=== PATIENT | female | born 1945 | race Caucasian/White ===

== ENCOUNTER 2020-11-08 11:29 | Emergency (ER) | payer OTHER ==
[2020-11-08 11:39] VITALS: BMI 27.4
[2020-11-08 12:48] LABS: BASO % 0.9 % (0-2.0); EOS % 1.7 % (0-4.5); HEMATOCRIT 40.6 % (32.4-45.2); HEMOGLOBIN 13.8 GM/dL (10.7-15.3); LYMPH % 22.1 % (8-40); MCH 32.4 pg (25.7-33.7); MCHC 34.1 g/dl (32.0-36.0); MEAN PLT VOLUME 8.7 fl (7.5-11.1); MONO % 7.3 % (3.8-10.2); PLATELET COUNT 292 K/MM3 (134-434); RBC 4.27 M/mm3 (3.60-5.2); RDW 12.9 % (11.6-15.6); WHITE BLOOD COUNT 7.6 K/mm3 (4.0-10.0)
[2020-11-08 13:03] LABS: CHLORIDE 105 mmol/L (98-107); POTASSIUM 3.8 mmol/L (3.5-5.1); SODIUM 139 mmol/L (136-145)
[2020-11-08 13:05] LABS: ALBUMIN 4.2 g/dl (3.4-5.0); ANION GAP 6 MMOL/L (8-16); BLOOD UREA NITROGEN 33.6 mg/dL (7-18); CALCIUM 9.6 mg/dL (8.5-10.1); CO2 29 mmol/L (21-32); MAGNESIUM 2.1 mg/dL (1.8-2.4)
[2020-11-08 13:06] LABS: GLUCOSE,RANDOM 87 mg/dL (74-106)
[2020-11-08 13:08] LABS: SGOT/AST 22 U/L (15-37); SGPT/ALT 34 U/L (13-61)
[2020-11-08 13:09] LABS: CREATININE 0.9 mg/dL (0.55-1.3)
[2020-11-08 13:10] LABS: BILIRUBIN,TOTAL 0.4 mg/dL (0.2-1); TOT PROT 6.8 g/dl (6.4-8.2)
[2020-11-08 13:11] LABS: ALK PHOS 101 U/L (45-117)
[2020-11-08] MEDS ORDERED: dilTIAZem HCL 60 MG TABLET PO ONE (14:27)
[2020-11-08 14:29] LABS: CHOLESTEROL 250 mg/dL (50-200); TRIGLYCERIDES 203 mg/dL (0-150)
[2020-11-08 14:30] LABS: LDL CHOLESTEROL (ONLY SJRH) 141 mg/dL (5-100)
[2020-11-08 14:31] LABS: HDL CHOLESTEROL 69 mg/dL (40-60)
[2020-11-08] MEDS ORDERED: dilTIAZem HCL 60 MG TABLET ONE (14:47)
[2020-11-08 15:04] VITALS: BP 138/66; PULSE 80; TEMP 97.9
== END 2020-11-08 15:10 | disposition home or self-care (01) ==
LOC: JER 11:29
DX: R00.0 Tachycardia, unspecified (principal)
CPT/HCPCS: 36415; 80053; 80061; 82550; 83721; 83735; 84443; 84484; 85025; 93005; 93010; 99284-25

== ENCOUNTER 2024-02-11 11:06 | Inpatient (IN) | payer OTHER, MEDICARE ==
[2024-02-11 11:26] VITALS: BMI 24.7
[2024-02-11 13:15] LABS: BASO % 0.3 % (0-2.0); EOS % 0.2 % (0-4.5); HEMATOCRIT 34.2 % (32.4-45.2); HEMOGLOBIN 11.8 GM/dL (10.7-15.3); LYMPH % 6.5 % (8-40); MCH 30.7 pg (25.7-33.7); MCHC 34.5 g/dl (32.0-36.0); MEAN CELL VOLUME 89.1 fl (80-96); PLATELET COUNT 301 10^3/uL (134-434); RBC 3.83 M/mm3 (3.60-5.2); RDW 14.2 % (11.6-15.6); WHITE BLOOD COUNT 17.7 K/mm3 (4.0-10.0)
[2024-02-11 13:21] LABS: INR 1.14 (0.83-1.09); PROTHROMBIN TIME (PATIENT) 13.1 SEC (9.7-13.0)
[2024-02-11 13:24] LABS: ACTIVATED PTT 54.1 SECONDS (25.2-36.5)
[2024-02-11 13:34] LABS: POTASSIUM 3.3 mmol/L (3.5-5.1)
[2024-02-11 13:36] LABS: CALCIUM 9.4 mg/dL (8.5-10.1)
[2024-02-11 13:37] LABS: ALBUMIN 3.9 g/dl (3.4-5.0); BLOOD UREA NITROGEN 19.3 mg/dL (7-18); MAGNESIUM 1.6 mg/dL (1.8-2.4)
[2024-02-11 13:40] LABS: CREATININE 1.4 mg/dL (0.55-1.3)
[2024-02-11 13:41] LABS: BILIRUBIN,TOTAL 1.1 mg/dL (0.2-1)
[2024-02-11 13:42] LABS: TOT PROT 6.9 g/dl (6.4-8.2)
[2024-02-11] MEDS: SODIUM CHLORIDE 1,000 ML IV ONE (16:01)
[2024-02-11] MEDS ORDERED: CEFTRIAXONE 1 GM/50 ML BAG ONE (17:50)
[2024-02-11] MEDS: CEFTRIAXONE 1,000 MG in DEXTROSE 5%-WATER - 50 ML IVPB ONE (18:04)
[2024-02-11] MEDS ORDERED: AZITHROMYCIN IVPB 500 MG/250 ML BAG IVPB ONE (18:22)
[2024-02-11 18:27] LABS: EPI CELLS >36 /uL (0-25.1); HYALINE CASTS 1 /uL (0-3.1); PH,URINE 5.5 (5.0-8.0); URINE APPEARANCE CLOUDY; URINE BACTERIA 84 /uL (0-1359); URINE BILIRUBIN NEGATIVE (NEGATIVE); URINE COLOR YELLOW; URINE GLUCOSE (UA) NEGATIVE (NEGATIVE); URINE KETONE NEGATIVE (NEGATIVE); URINE LEUK ESTERASE 3+ (NEGATIVE); URINE NITRITE NEGATIVE (NEGATIVE); URINE PROTEIN NEGATIVE (NEGATIVE); URINE RBC 17 /uL (0-23.9); URINE UROBILINOGEN 0.2 mg/dL (0.2-1.0); URINE WBC 439 /uL (0-25.8)
[2024-02-11] MEDS: AZITHROMYCIN IVPB 500 MG in DEXTROSE 5%-WATER - 250 ML IVPB ONE (18:29)
[2024-02-11] MEDS ORDERED: ACETAMINOPHEN INJECTION 100 ML IVPB ONE (20:26)
[2024-02-11] MEDS: ACETAMINOPHEN 1000 MG/100 ML BAG IVPB ONE (20:30)
[2024-02-12] MEDS ORDERED: POTASSIUM CHLORIDE TABS 20 MEQ TABLET.ER (FP) PO ONE ×2 (00:48→00:52)
[2024-02-12] MEDS: POTASSIUM CHLORIDE TABS 20 MEQ TABLET.ER (FP) PO ONE (00:56)
[2024-02-12] MEDS: MAGNESIUM 2GM/50ML STERILE WATER IVPB IVPB ONE (01:42)
[2024-02-12] MEDS: SODIUM CHLORIDE 1,000 ML IV SCH ×2 (01:42→10:03)
[2024-02-12] MEDS: VANCOMYCIN/WATER FOR INJ (PEG) 1,000 MG/200 ML BAG IVPB ONE (02:15)
[2024-02-12] MEDS: KCL 10 MEQ IVPB 10 MEQ/100 ML INFUS.BAG IVPB SCH (02:52)
[2024-02-12] MEDS: HEPARIN NA (PORCINE) 5,000 UNITS/ML 1ML VIAL SQ SCH (05:38)
[2024-02-12 09:24] LABS: HEMATOCRIT 31.9 % (32.4-45.2); HEMOGLOBIN 11.2 GM/dL (10.7-15.3); MCH 31.6 pg (25.7-33.7); MCHC 35.1 g/dl (32.0-36.0); MEAN PLT VOLUME 7.8 fl (7.5-11.1); PLATELET COUNT 283 10^3/uL (134-434); RBC 3.54 M/mm3 (3.60-5.2); RDW 13.8 % (11.6-15.6); WHITE BLOOD COUNT 12.5 K/mm3 (4.0-10.0)
[2024-02-12 09:45] LABS: POTASSIUM 3.6 mmol/L (3.5-5.1)
[2024-02-12 09:51] LABS: BLOOD UREA NITROGEN 16.3 mg/dL (7-18); MAGNESIUM 2.2 mg/dL (1.8-2.4)
[2024-02-12 09:54] LABS: CREATININE 0.9 mg/dL (0.55-1.3); PHOSPHOROUS 3.1 mg/dL (2.5-4.9)
[2024-02-12] MEDS: CEFTRIAXONE 1 GM in DEXTROSE 5%-WATER - 50 ML IVPB SCH (11:31)
[2024-02-12 12:42] LABS: POTASSIUM 3.7 mmol/L (3.5-5.1)
[2024-02-12 12:44] LABS: BLOOD UREA NITROGEN 14.3 mg/dL (7-18)
[2024-02-12 12:47] LABS: CREATININE 0.7 mg/dL (0.55-1.3)
[2024-02-12] MEDS: ACYCLOVIR 400 MG TABLET PO SCH (14:13)
[2024-02-12] MEDS: FLUTICASONE/UMECLIDIN/VILANTER(100-62.5-25 TRELEGY ELLIPTA) INAHLER IH SCH (14:14)
[2024-02-12] MEDS ORDERED: METOCLOPRAMIDE HCL INJECTION 10 MG/2 ML VIAL IVPUSH PRN (17:37)
[2024-02-12] MEDS: AZITHROMYCIN IVPB 500 MG/250 ML BAG IVPB SCH (17:41)
[2024-02-12] MEDS: traMADol HCL 50 MG TABLET PO PRN (18:26)
[2024-02-12 18:51] LABS: POTASSIUM 3.5 mmol/L (3.5-5.1)
[2024-02-12 18:53] LABS: BLOOD UREA NITROGEN 13.9 mg/dL (7-18); CALCIUM 8.9 mg/dL (8.5-10.1)
[2024-02-12 18:57] LABS: CREATININE 0.8 mg/dL (0.55-1.3)
[2024-02-13] MEDS: PANTOPRAZOLE 40 MG TABLET PO SCH (06:04)
[2024-02-13] MEDS: LOSARTAN POTASSIUM 50 MG TABLET PO SCH (09:49)
[2024-02-13 09:55] LABS: BASO % 0.5 % (0-2.0); EOS % 3.9 % (0-4.5); HEMATOCRIT 33.9 % (32.4-45.2); HEMOGLOBIN 11.8 GM/dL (10.7-15.3); LYMPH % 13.7 % (8-40); MCH 31.4 pg (25.7-33.7); MCHC 34.8 g/dl (32.0-36.0); MEAN CELL VOLUME 90.2 fl (80-96); MEAN PLT VOLUME 7.3 fl (7.5-11.1); MONO % 6.4 % (3.8-10.2); NEUT % 75.5 % (42.8-82.8); PLATELET COUNT 359 10^3/uL (134-434); RBC 3.75 M/mm3 (3.60-5.2); RDW 13.9 % (11.6-15.6); WHITE BLOOD COUNT 9.5 K/mm3 (4.0-10.0)
[2024-02-13] MEDS ORDERED: amLODIPine BESYLATE 5 MG TABLET (FP) PO SCH (10:00)
[2024-02-13 10:12] LABS: POTASSIUM 3.4 mmol/L (3.5-5.1)
[2024-02-13 10:13] LABS: CALCIUM 9.3 mg/dL (8.5-10.1)
[2024-02-13 10:14] LABS: ALBUMIN 3.4 g/dl (3.4-5.0); BLOOD UREA NITROGEN 7.4 mg/dL (7-18)
[2024-02-13 10:17] LABS: CREATININE 0.7 mg/dL (0.55-1.3)
[2024-02-13 10:18] LABS: BILIRUBIN,TOTAL 0.7 mg/dL (0.2-1); TOT PROT 6.8 g/dl (6.4-8.2)
[2024-02-13] MEDS: POLYETHYLENE GLYCOL (HEALTHYLAX) 3350 17 GM PACKET PO SCH (13:19)
[2024-02-13] MEDS: VANCOMYCIN/WATER FOR INJ (PEG) 1,000 MG/200 ML BAG IVPB ONE (16:01)
[2024-02-13] MEDS: POTASSIUM CHLORIDE ORAL LIQUID 20 MEQ/15 ML PO ONE (19:55)
[2024-02-14 14:02] LABS: POTASSIUM 4.1 mmol/L (3.5-5.1)
[2024-02-14 14:04] LABS: ALBUMIN 3.4 g/dl (3.4-5.0); CALCIUM 9.7 mg/dL (8.5-10.1); MAGNESIUM 1.5 mg/dL (1.8-2.4)
[2024-02-14 14:05] LABS: BLOOD UREA NITROGEN 7.5 mg/dL (7-18)
[2024-02-14 14:08] LABS: CREATININE 0.6 mg/dL (0.55-1.3)
[2024-02-14 14:09] LABS: BILIRUBIN,TOTAL 0.7 mg/dL (0.2-1); TOT PROT 6.6 g/dl (6.4-8.2)
[2024-02-14] MEDS: SODIUM CHLORIDE 1,000 ML IV SCH (19:36)
[2024-02-14] MEDS: BENZOCAINE/MENTH/CETYLPYRD CL 1 EACH LOZENGE MM PRN (23:22)
[2024-02-15 08:26] LABS: BASO % 0.9 % (0-2.0); EOS % 4.1 % (0-4.5); HEMATOCRIT 32.2 % (32.4-45.2); HEMOGLOBIN 11.2 GM/dL (10.7-15.3); LYMPH % 22.1 % (8-40); MCH 31.4 pg (25.7-33.7); MCHC 34.7 g/dl (32.0-36.0); MEAN CELL VOLUME 90.5 fl (80-96); MONO % 12.5 % (3.8-10.2); NEUT % 60.4 % (42.8-82.8); PLATELET COUNT 393 10^3/uL (134-434); RBC 3.55 M/mm3 (3.60-5.2); RDW 13.5 % (11.6-15.6)
[2024-02-15] MEDS: AMOX TR/POT CLAV 875MG/125MG TABLETS (FP) PO SCH (10:09)
[2024-02-15 11:04] LABS: BASO % 0.8 % (0-2.0); EOS % 2.3 % (0-4.5); HEMOGLOBIN 10.8 GM/dL (10.7-15.3); LYMPH % 15.6 % (8-40); MCH 31.5 pg (25.7-33.7); MCHC 34.9 g/dl (32.0-36.0); MEAN CELL VOLUME 90.3 fl (80-96); MEAN PLT VOLUME 6.8 fl (7.5-11.1); MONO % 11.2 % (3.8-10.2); NEUT % 70.1 % (42.8-82.8); PLATELET COUNT 379 10^3/uL (134-434); RBC 3.43 M/mm3 (3.60-5.2); RDW 13.8 % (11.6-15.6); WHITE BLOOD COUNT 8.5 K/mm3 (4.0-10.0)
[2024-02-15 11:30] LABS: POTASSIUM 4.4 mmol/L (3.5-5.1)
[2024-02-15 11:32] LABS: ALBUMIN 3.3 g/dl (3.4-5.0); CALCIUM 9.2 mg/dL (8.5-10.1)
[2024-02-15 11:35] LABS: CREATININE 0.7 mg/dL (0.55-1.3)
[2024-02-15 11:37] LABS: BILIRUBIN,TOTAL 0.7 mg/dL (0.2-1); TOT PROT 6.6 g/dl (6.4-8.2)
[2024-02-15] MEDS: PEG 3350/NA SULF BICARB CL/KCL 4000 ML SOLN.RECON PO ONE (14:10)
[2024-02-15] MEDS: BISACODYL 5 MG TABLET.DR (FP) PO ONE (21:15)
[2024-02-15] MEDS: traMADol HCL 50 MG TABLET PO ONE (23:26)
[2024-02-16 08:11] LABS: CARCINOEMBRYONIC ANTIGEN 1.3 ng/mL (0.0-4.7)
[2024-02-16 09:35] LABS: BASO % 1.1 % (0-2.0); EOS % 3.7 % (0-4.5); HEMATOCRIT 28.3 % (32.4-45.2); LYMPH % 18.4 % (8-40); MCH 31.5 pg (25.7-33.7); MCHC 35.2 g/dl (32.0-36.0); MEAN CELL VOLUME 89.4 fl (80-96); MEAN PLT VOLUME 6.8 fl (7.5-11.1); MONO % 10.1 % (3.8-10.2); NEUT % 66.7 % (42.8-82.8); PLATELET COUNT 330 10^3/uL (134-434); RBC 3.17 M/mm3 (3.60-5.2); RDW 13.7 % (11.6-15.6); WHITE BLOOD COUNT 6.2 K/mm3 (4.0-10.0)
[2024-02-16 09:45] LABS: INR 1.21 (0.83-1.09); PROTHROMBIN TIME (PATIENT) 13.6 SEC (9.7-13.0)
[2024-02-16 09:58] LABS: POTASSIUM 3.7 mmol/L (3.5-5.1)
[2024-02-16 10:02] LABS: BLOOD UREA NITROGEN 5.2 mg/dL (7-18); CALCIUM 8.8 mg/dL (8.5-10.1); MAGNESIUM 1.2 mg/dL (1.8-2.4)
[2024-02-16 10:06] LABS: CREATININE 0.6 mg/dL (0.55-1.3)
[2024-02-16 10:07] LABS: BILIRUBIN,TOTAL 0.5 mg/dL (0.2-1); TOT PROT 5.7 g/dl (6.4-8.2)
[2024-02-16] MEDS ORDERED: MAGNESIUM SULF 50% (8.12 MEQ/2 ML-1 GM VIAL) IVPB ONE (10:17)
[2024-02-16] MEDS ORDERED: SODIUM CHLORIDE 1,000 ML IV SCH (10:30)
[2024-02-16] MEDS: MAGNESIUM SULF 50% (8.12 MEQ/2 ML-1 GM VIAL) IVPB ONE ×2 (14:30→21:30)
[2024-02-17] MEDS: traMADol HCL 50 MG TABLET PO ONE ×3 (00:59→23:25)
[2024-02-17 08:42] LABS: BASO % 1.2 % (0-2.0); EOS % 8.1 % (0-4.5); HEMATOCRIT 31.1 % (32.4-45.2); HEMOGLOBIN 10.9 GM/dL (10.7-15.3); LYMPH % 19.5 % (8-40); MCH 31.8 pg (25.7-33.7); MCHC 34.9 g/dl (32.0-36.0); MEAN CELL VOLUME 90.9 fl (80-96); MEAN PLT VOLUME 6.5 fl (7.5-11.1); MONO % 9.3 % (3.8-10.2); NEUT % 61.9 % (42.8-82.8); PLATELET COUNT 392 10^3/uL (134-434); RBC 3.42 M/mm3 (3.60-5.2); RDW 13.7 % (11.6-15.6); WHITE BLOOD COUNT 7.6 K/mm3 (4.0-10.0)
[2024-02-17 08:59] LABS: POTASSIUM 3.9 mmol/L (3.5-5.1)
[2024-02-17 09:11] LABS: ALBUMIN 3.1 g/dl (3.4-5.0); BLOOD UREA NITROGEN 4.7 mg/dL (7-18); MAGNESIUM 1.9 mg/dL (1.8-2.4)
[2024-02-17 09:14] LABS: CREATININE 0.5 mg/dL (0.55-1.3); PHOSPHOROUS 3.6 mg/dL (2.5-4.9)
[2024-02-17 09:15] LABS: BILIRUBIN,TOTAL 0.7 mg/dL (0.2-1); TOT PROT 6.3 g/dl (6.4-8.2)
[2024-02-17] MEDS ORDERED: ACETAMINOPHEN WITH CODEINE 300MG/30MG TABLET PO PRN (14:03)
[2024-02-17] MEDS ORDERED: MELATONIN 1 MG TABLET PO ONE (14:07)
[2024-02-17] MEDS: ACETAMINOPHEN 325 MG TABLET (FP) PO PRN (21:54)
[2024-02-17] MEDS: MELATONIN 1 MG TABLET PO ONE (21:55)
[2024-02-18 08:34] VITALS: RESP 18
[2024-02-18 09:00] LABS: EOS % 5.4 % (0-4.5); HEMATOCRIT 31.7 % (32.4-45.2); LYMPH % 20.8 % (8-40); MCH 31.6 pg (25.7-33.7); MCHC 34.8 g/dl (32.0-36.0); MEAN CELL VOLUME 90.8 fl (80-96); MEAN PLT VOLUME 6.5 fl (7.5-11.1); MONO % 8.3 % (3.8-10.2); NEUT % 64.5 % (42.8-82.8); PLATELET COUNT 422 10^3/uL (134-434); RDW 13.7 % (11.6-15.6); WHITE BLOOD COUNT 6.9 K/mm3 (4.0-10.0)
[2024-02-18 09:19] LABS: POTASSIUM 4.1 mmol/L (3.5-5.1)
[2024-02-18 09:23] LABS: ALBUMIN 3.2 g/dl (3.4-5.0); BLOOD UREA NITROGEN 4.7 mg/dL (7-18); CALCIUM 8.8 mg/dL (8.5-10.1); MAGNESIUM 1.5 mg/dL (1.8-2.4)
[2024-02-18 09:26] LABS: CREATININE 0.6 mg/dL (0.55-1.3); PHOSPHOROUS 3.9 mg/dL (2.5-4.9)
[2024-02-18 09:28] LABS: BILIRUBIN,TOTAL 0.6 mg/dL (0.2-1); TOT PROT 6.5 g/dl (6.4-8.2)
[2024-02-18] MEDS: ACETAMINOPHEN 1000 MG/100 ML BAG IVPB ONE (22:21)
[2024-02-18] MEDS: MELATONIN 5 MG TABLETS PO ONE (23:19)
[2024-02-19] MEDS: traMADol HCL 50 MG TABLET PO ONE (00:16)
[2024-02-19] MEDS: FUROSEMIDE 40 MG TABLET (FP) PO ONE (11:00)
[2024-02-19 14:33] VITALS: BP 143/69; PULSE 85; TEMP 98.2
== END 2024-02-19 17:03 | disposition home or self-care (01) | DRG 871 ==
LOC: JER 11:06 → JERBED 20:12 → INTOOBSV 20:12 → UNDOADMOB 20:12 → JERBED 20:12 → UNDOADMOB 23:54 → INTOOBSV 23:54 → OBSVTOIN 23:54 → J6S 02-12 01:12 → JERBED 02-12 01:12
PROVIDERS: ADMIT Internal Medicine; ATTEND Internal Medicine
PROC: 0DB98ZX Excision of Duodenum, Via Natural or Artificial Opening Endoscopic, Diagnostic (ICD-10-PCS; 2024-02-16)
PROC: 0DB78ZX Excision of Stomach, Pylorus, Via Natural or Artificial Opening Endoscopic, Diagnostic (ICD-10-PCS; 2024-02-16)
PROC: 0DB68ZX Excision of Stomach, Via Natural or Artificial Opening Endoscopic, Diagnostic (ICD-10-PCS; 2024-02-16)
PROC: 0DJD8ZZ Inspection of Lower Intestinal Tract, Via Natural or Artificial Opening Endoscopic (ICD-10-PCS; principal; 2024-02-16 12:00)
DX: A41.89 Other specified sepsis (principal); E43 Unspecified severe protein-calorie malnutrition; J18.9 Pneumonia, unspecified organism; E87.1 Hypo-osmolality and hyponatremia; N17.9 Acute kidney failure, unspecified; N39.0 Urinary tract infection, site not specified; I42.8 Other cardiomyopathies; I10 Essential (primary) hypertension; E78.5 Hyperlipidemia, unspecified; J44.9 Chronic obstructive pulmonary disease, unspecified; G20.A1 Parkinson's disease without dyskinesia, without mention of fluctuations; E86.0 Dehydration; K21.9 Gastro-esophageal reflux disease without esophagitis; F41.8 Other specified anxiety disorders; D72.829 Elevated white blood cell count, unspecified; B95.2 Enterococcus as the cause of diseases classified elsewhere; R00.0 Tachycardia, unspecified; E86.1 Hypovolemia; T42.8X5A Adverse effect of antiparkinsonism drugs and other central muscle-tone depressants, initial encounter; M81.0 Age-related osteoporosis without current pathological fracture; R63.4 Abnormal weight loss; Z68.25 Body mass index [BMI] 25.0-25.9, adult; R68.81 Early satiety; R93.5 Abnormal findings on diagnostic imaging of other abdominal regions, including retroperitoneum; E87.6 Hypokalemia; E83.42 Hypomagnesemia; K57.30 Diverticulosis of large intestine without perforation or abscess without bleeding; K64.8 Other hemorrhoids; K44.9 Diaphragmatic hernia without obstruction or gangrene; K29.40 Chronic atrophic gastritis without bleeding; R10.32 Left lower quadrant pain
CPT/HCPCS: 0241U-QW; 36415; 71046-TC-FY; 72197-TC; 74177-TC; 76775-TC; 80048; 80053; 80061; 81003; 82378; 82533; 82550; 82607; 83036; 83605; 83690; 83735; 83930; 83935; 84100; 84295; 84300; 84439; 84443; 84484; 84550; 85025; 85027; 85610; 85651; 85730; 86301; 86304; 86850; 86900; 86901; 87040; 87086; 87186; 87899; 88305-TC; 93005; 93010; 97116-GP; 97161-GP; 99285-25; G0378; J0131; J1644; Q9967